=== PATIENT | male | born 1995 | race Caucasian/White ===

== ENCOUNTER 2019-12-11 19:18 | Emergency (ER) | payer OTHER ==
[~2019-12-11] VITALS: Ht 167.6 cm; Wt 63.5 kg
--- NOTE | 2019-12-11 19:30 | NUR ---
C/O DIARRHEA X1 WEEK, DENIES N/V, - ABD PAIN.
--- NOTE | 2019-12-11 20:00 | NUR ---
Patient discharged to home in stable condition. Rx and Written and verbal after care instructions given. Patient verbalizes understanding of instruction.
[2019-12-11 20:26] VITALS: BP 138/75
== END 2019-12-11 20:00 | disposition home or self-care (01) ==
LOC: ER 19:23
DX: R19.7 Diarrhea, unspecified (principal)

== ENCOUNTER → 2019-12-17 | Emergency (ER) | payer OTHER ==
[~2019-12-17] VITALS: Ht 167.6 cm; Wt 63.0 kg
[2019-12-17 09:53] VITALS: BP 122/80
--- NOTE | 2019-12-17 10:41 | NUR ---
Patient discharged to home in stable condition. Written and verbal after care instructions given. Patient verbalizes understanding of instruction.
== END | disposition home or self-care (01) ==
LOC: ER 09:45
DX: R19.7 Diarrhea, unspecified (principal)

== ENCOUNTER 2021-01-17 18:37 | Emergency (ER) | payer OTHER ==
[~2021-01-17] VITALS: Ht 167.6 cm; Wt 69.4 kg
--- NOTE | 2021-01-17 18:57 | NUR ---
THE PATIENT BIBS FOR C/O PAIN,SOLE OF BOTH FEET X 2 DAYS. THE PATIENT RATES PAIN 5/10. DENIES TRAUMA. WILL CONTINUE TO MONITOR THE PATIENT.
--- NOTE | 2021-01-17 19:25 | NUR ---
COVID SWAB DONE AND SENT TO THE LAB
[2021-01-17] MEDS ORDERED: OLANZAPINE 5 MG TABLET PO ONE (19:30)
[2021-01-17] MEDS ORDERED: TERBINAFINE HCL 250 MG TABLET PO ONE (19:30)
[2021-01-17 19:31] LABS: BASOPHILS # (AUTO) 0.1 /CMM (0.0-0.2); BASOPHILS % (AUTO) 0.6 % (0.0-2.0); EOSINOPHILS % (AUTO) 0.3 % (0.0-6.0); HEMATOCRIT 46 % (39-51); HEMOGLOBIN 15.4 g/dL (13.5-17.5); LYMPHOCYTES % (AUTO) 9.9 % (20.0-44.0); MEAN CORPUSCULAR HGB CONC 33 g/dl (31.0-36.0); MEAN CORPUSCULAR VOLUME 89 fL (80-96); MONOCYTES # (AUTO) 0.5 /CMM (0.1-1.30); NEUTROPHILS # (AUTO) 8.5 /CMM (1.8-8.9); NEUTROPHILS % (AUTO) 84.2 % (43.0-81.0); PLATELET COUNT (AUTO) 234 /CMM (150-450); RED BLOOD CELL COUNT(AUTO) 5.22 MIL/uL (4.5-6.0); WHITE BLOOD COUNT (AUTO) 10.1 K/uL (4.3-11.0)
[2021-01-17] MEDS ORDERED: OLANZAPINE 5 MG TABLET ONE (19:32)
--- NOTE | 2021-01-17 19:41 | NUR ---
urine collected and sent to the lab
[2021-01-17 19:57] LABS: BILIRUBIN,URINE Negative (NEGATIVE); COLOR,URINE YELLOW (YELLOW); LEUKOCYTE ESTERASE ,URINE Negative (NEGATIVE); NITRITE, URINE Negative (NEGATIVE); PH,URINE 7.5 (5.0-8.0); PROTEIN,URINE Negative (NEGATIVE); UGLUCOSE Negative (NEGATIVE); UROBILINOGEN,URINE 0.2 EU/dL (0.2)
--- NOTE | 2021-01-17 20:20 | NUR ---
COVID NEGATIVE PER LAB
[2021-01-17 20:21] LABS: ALANINE AMINOTRANSFERASE 24 U/L (12-78); ALBUMIN 3.7 g/dL (3.4-5.0); ALCOHOL, BLOOD < 3 mg/dL (0-0); ALKALINE PHOSPHATASE 54 U/L (46-116); ASPARTATE AMINOTRANSFERASE 20 U/L (15-37); BILIRUBIN,DIRECT 0.1 mg/dL (0.0-0.2); BILIRUBIN,TOTAL 0.2 mg/dL (0.2-1.0); CALCIUM, SERUM 8.7 mg/dL (8.5-10.1); CARBON DIOXIDE 30 mmol/L (21-32); CHLORIDE 106 mmol/L (98-107); CREATININE 0.9 mg/dL (0.6-1.3); GLUCOSE 107 mg/dL (74-106); POTASSIUM 4.6 mmol/L (3.5-5.1); SODIUM SERUM 141 mmol/L (136-145); TOTAL PROTEIN, SERUM 6.8 g/dL (6.4-8.2); UREA NITROGEN, BLOOD 14 mg/dL (7-18)
[2021-01-17 20:22] LABS: ACETAMINOPHEN < 0 ug/ml (10-30)
[2021-01-17] MEDS ORDERED: TERB250T52 PO (20:31)
--- NOTE | 2021-01-17 20:57 | NUR ---
FAXED CLINICALS AND FACESHEET TO [facility]
--- NOTE | 2021-01-17 22:33 | NUR ---
PT ACCEPTED TO [facility] BY DR TRAYLOR. NUMBER FOR REPORT [phone]
--- NOTE | 2021-01-17 22:44 | NUR ---
[id number] #[id number], ETA TO FOLLOW
--- NOTE | 2021-01-17 22:49 | NUR ---
REPORT GIVEN TO NURSE KRUEGER.
--- NOTE | 2021-01-17 22:53 | NUR ---
GO [facility] AT [id number]
[2021-01-17 23:00] VITALS: BP 135/74
--- NOTE | 2021-01-17 23:40 | NUR ---
[facility] IN FACILITY, REPORT GIVEN. PT WILL BE XFERED TO [facility] FOR VOL PSYCH ADMIT
--- NOTE | 2021-01-17 23:45 | NUR ---
pt left via private ambulance. vss, nad
== END 2021-01-17 23:47 ==
LOC: ER 18:42
DX: F29 Unspecified psychosis not due to a substance or known physiological condition (principal); F19.10 Other psychoactive substance abuse, uncomplicated; F25.9 Schizoaffective disorder, unspecified; Z91.14 Patient's other noncompliance with medication regimen; B35.1 Tinea unguium; Z59.0 Homelessness; Z20.822 Contact with and (suspected) exposure to COVID-19
CPT/HCPCS: 36415; 80048; 80076; 80299; 80307; 80320; 81003; 85025; 87426; 99285; C9803; G0480